=== PATIENT | male | born 1945 | race Native Hawaiian/Other Pacific Islander ===

== ENCOUNTER 2018-11-13 11:27 | Emergency (ER) | payer BC, OTHER, MEDICARE ==
[~2018-11-13] VITALS: Ht 177.8 cm; Wt 86.2 kg
[2018-11-13 11:51] VITALS: TEMP 98
[2018-11-13 12:34] LABS: PLATELET COUNT 282 K/uL (142-355)
[2018-11-13 12:50] LABS: POTASSIUM 4.1 mmol/L (3.6-5.2)
[2018-11-13 16:21] VITALS: BP 144/80
== END 2018-11-13 16:21 | disposition home or self-care (01) ==
LOC: ED 11:27
PROVIDERS: Emergency Medicine
DX: N45.3 Epididymo-orchitis (principal)
CPT/HCPCS: 36415; 80053; 85027; 96365; 99284; J0696